=== PATIENT | male | born 1960 | race Two or more races ===

== ENCOUNTER 2018-10-01 20:48 | Emergency (ER) | payer MEDICAID ==
[~2018-10-01] VITALS: Ht 167.6 cm; Wt 79.4 kg
[~2018-10-01 20:48] MED LIST: ASP81EC PO; LISI40TA PO; METF-370 PO; METO25TA5 PO; OME20T PO; SIMV-13 PO
[2018-10-01 23:49] LABS: Basophils # (auto) 0 uL; Basophils % (auto) 0.2 % (0.0-2.0); Eosinophils # (auto) 0 uL; Hematocrit 47.2 % (41.0-53.0); Hemoglobin 15.9 g/dL (13.5-17.5); Lymphocytes # (auto) 0.8 uL; Lymphocytes % (auto) 5.7 % (10.0-50.0); Mean Corpuscular Hemoglobin 28.5 pg (28.0-32.0); Mean Corpuscular Hgb Conc. 33.6 g/dL (32.0-36.0); Mean Corpuscular Volume 84.7 fL (80.0-100.0); Monocytes # (auto) 0.8 uL; Monocytes % (auto) 5.7 % (0.0-12.0); Neutrophils # (auto) 12.9 uL; Neutrophils % (auto) 88.4 % (37.0-80.0); Platelet Count (auto) 184 10^3/uL (140-450); Red Blood Cells 5.57 10^6/uL (4.5-5.90); Red Cell Distribution Width 13.9 % (11.8-14.3); White Blood Cell 14.7 10^3/uL (4.4-10.8)
[2018-10-02 00:02] LABS: Albumin 3.8 g/dL (3.4-5.0); Anion Gap 8 (5-15); Blood Urea Nitrogen 16 mg/dL (7-18); Calcium 8.3 mg/dL (8.5-10.1); Carbon Dioxide 23 mmol/L (21-32); Chloride 106 mmol/L (98-107); Glucose 132 mg/dL (74-106); Potassium 3.7 mmol/L (3.5-5.1); Sodium 137 mmol/L (136-145)
[2018-10-02 00:07] LABS: Alanine Aminotransferase 26 U/L (16-61); Alkaline Phosphatase 79 U/L (45-117); Aspartate Aminotransferase 16 U/L (15-37); BUN/Creatinine Ratio 10.5; Bilirubin, Total 0.8 mg/dL (0.2-1.0); GFR African American 60 mL/min; GFR Non-African American 50 mL/min; Total Protein 7.3 g/dL (6.4-8.2)
[2018-10-02] MEDS ORDERED: SODIUM CHLORIDE 0.9% 1,000 ML IV ONE (08:01)
[2018-10-02] MEDS ORDERED: METOCLOPRAMIDE HCL 5MG/ml INJ 2ml VIAL IV ONE (08:15)
[2018-10-02] MEDS ORDERED: VANCOMYCIN HCL 500MG/5ML ORAL SOL PO ONE (08:15)
[2018-10-02] MEDS ORDERED: metroNIDAZOLE 500MG/100ML 100 ML IV ONE (08:15)
[2018-10-02] MEDS ORDERED: KETOROLAC TROMETH 30 MG/ML 1ML VIAL IV ONE (08:15)
[2018-10-02 14:04] LABS: Urine Bacteria NONE SEEN /hpf (None Seen); Urine Blood Negative /uL (Negative); Urine Hyaline Cast MOD /lpf (0 - 2); Urine Mucus FEW (None Seen); Urine Specific Gravity 1.024 (1.001-1.035); Urine WBC 3 /hpf (0 - 3)
[2018-10-02 16:00] VITALS: BP 108/65
== END 2018-10-02 16:10 | disposition home or self-care (01) ==
LOC: ER 20:48
DX: R07.89 Other chest pain (principal); J40 Bronchitis, not specified as acute or chronic; E11.21 Type 2 diabetes mellitus with diabetic nephropathy; K52.9 Noninfective gastroenteritis and colitis, unspecified; R51 Headache; K21.9 Gastro-esophageal reflux disease without esophagitis; E78.5 Hyperlipidemia, unspecified; F17.210 Nicotine dependence, cigarettes, uncomplicated; I10 Essential (primary) hypertension; Z87.11 Personal history of peptic ulcer disease; Z79.82 Long term (current) use of aspirin; Z79.899 Other long term (current) drug therapy
CPT/HCPCS: 36415; 71045; 80053; 81001; 83735; 84484; 85025; 87804; 93005; 96365; 96375; 99284; J1885; J2765; J3370; J3490; J7030

== ENCOUNTER 2021-11-04 12:06 | Inpatient (IN) | payer MEDICAID, OTHER ==
[~2021-11-04] VITALS: Ht 165.1 cm; Wt 82.2 kg
[~2021-11-04 12:06] MED LIST changes: -ASP81EC PO; +ASPI-394 PO; -LISI40TA PO; +LISI40TA11 PO
[2021-11-04] MEDS ORDERED: KETOROLAC TROMETH 30 MG/ML 1ML VIAL IV ONE (12:45)
[2021-11-04] MEDS ORDERED: CLINDAMYCIN 600MG IV 50 ML IV ONE (12:45)
[2021-11-04] MEDS ORDERED: SODIUM CHLORIDE 0.9% 1,000 ML IV ONE (12:45)
[2021-11-04 14:36] LABS: Basophils # (auto) 0.1 10 ^3/uL (0-0.2); Basophils % (auto) 0.3 % (0.0-2.0); Eosinophils # (auto) 0 10 ^3/uL (0-0.8); Eosinophils % (auto) 0.1 % (0.0-7.0); Hemoglobin 13.8 g/dL (13.5-17.5); Lymphocytes # (auto) 1.6 10 ^3/uL (0.4-5.4); Lymphocytes % (auto) 9.5 % (10.0-50.0); Mean Corpuscular Hgb Conc. 33.6 g/dL (32.0-36.0); Mean Corpuscular Volume 83.4 fL (80.0-100.0); Monocytes # (auto) 1.2 10 ^3/uL (0-1.3); Monocytes % (auto) 7.2 % (0.0-12.0); Neutrophils % (auto) 82.9 % (37.0-80.0); Nucleated Red Blood Cells % 0.1 %; Red Blood Cells 4.92 10^6/uL (4.5-5.90); Red Cell Distribution Width 13.5 % (11.8-14.3); White Blood Cell 16.9 10^3/uL (4.4-10.8)
[2021-11-04 14:58] LABS: Albumin 3.3 g/dL (3.4-5.0); Anion Gap 8 (5-15); BUN/Creatinine Ratio 14.3; Blood Urea Nitrogen 15 mg/dL (7-18); Calcium 8.3 mg/dL (8.5-10.1); Carbon Dioxide 24 mmol/L (21-32); Chloride 107 mmol/L (98-107); GFR African American 92 mL/min; GFR Non-African American 76 mL/min; Glucose 125 mg/dL (74-106); Potassium 3.5 mmol/L (3.5-5.1); Sodium 139 mmol/L (136-145)
[2021-11-04 15:01] LABS: Alanine Aminotransferase 24 U/L (16-61); Alkaline Phosphatase 97 U/L (45-117); Aspartate Aminotransferase 18 U/L (15-37); Bilirubin, Total 0.4 mg/dL (0.2-1.0); Total Protein 6.9 g/dL (6.4-8.2)
[2021-11-04] MEDS ORDERED: MORPHINE SULFATE 4 MG/ML SYR/VIAL IV ONE (19:45)
[2021-11-04] MEDS ORDERED: ONDANSETRON HCL 4 MG/2 ML VIAL IV ONE (19:45)
[2021-11-04] MEDS ORDERED: DEXTROSE (50%) 50ML SYRG IV PRN (21:45)
[2021-11-04] MEDS ORDERED: ACETAMINOPHEN 325 MG TAB PO PRN (21:45)
[2021-11-04] MEDS ORDERED: TEMAZEPAM 15 MG CAP PO PRN (21:45)
[2021-11-04] MEDS ORDERED: ONDANSETRON HCL 4 MG/2 ML VIAL IV PRN (21:45)
[2021-11-04] MEDS: InsuLIN REG 1unit/0.01ml Soln (100units/ml) SC SCH (22:00)
[2021-11-04] MEDS: CLINDAMYCIN 600MG IV 50 ML IV SCH (22:46)
[2021-11-04] MEDS: cefTRIAXone 1GM/50ML D5W 50 ML IV SCH (22:46)
[2021-11-04] MEDS: ATORVASTATIN 20 MG TAB PO SCH (22:47)
[2021-11-04] MEDS: ACCU-CHEK COMFORT CURVE STRIP VI SCH (22:47)
[2021-11-04] MEDS: METOPROLOL TARTRATE 25 MG TAB PO SCH (22:48)
[2021-11-04 23:44] VITALS: BP 145/79
[2021-11-05 02:59] VITALS: BP 145/79
[2021-11-05] MEDS: HYDROcodone-ACET 5/325MG TAB PO PRN ×3 (04:32→20:23)
[2021-11-05 05:00] VITALS: BP 138/71
[2021-11-05] MEDS: ACCU-CHEK COMFORT CURVE STRIP VI SCH ×4 (06:12→21:50)
[2021-11-05] MEDS: InsuLIN REG 1unit/0.01ml Soln (100units/ml) SC SCH ×4 (06:12→21:50)
[2021-11-05] MEDS: CLINDAMYCIN 600MG IV 50 ML IV SCH ×3 (06:12→22:23)
[2021-11-05 06:59] LABS: Basophils # (auto) 0 10 ^3/uL (0-0.2); Basophils % (auto) 0.1 % (0.0-2.0); Eosinophils # (auto) 0.1 10 ^3/uL (0-0.8); Eosinophils % (auto) 0.8 % (0.0-7.0); Hematocrit 38.6 % (41.0-53.0); Hemoglobin 13.2 g/dL (13.5-17.5); Lymphocytes # (auto) 1.6 10 ^3/uL (0.4-5.4); Lymphocytes % (auto) 11.7 % (10.0-50.0); Mean Corpuscular Hemoglobin 28.6 pg (28.0-32.0); Mean Corpuscular Hgb Conc. 34.3 g/dL (32.0-36.0); Mean Corpuscular Volume 83.3 fL (80.0-100.0); Monocytes # (auto) 1.3 10 ^3/uL (0-1.3); Monocytes % (auto) 8.9 % (0.0-12.0); Neutrophils % (auto) 78.5 % (37.0-80.0); Red Blood Cells 4.63 10^6/uL (4.5-5.90)
[2021-11-05 07:00] LABS: Calcium 8.1 mg/dL (8.5-10.1); Potassium 3.9 mmol/L (3.5-5.1)
[2021-11-05 09:00] VITALS: BP 142/85
[2021-11-05] MEDS: cefTRIAXone 1GM/50ML D5W 50 ML IV SCH (09:33)
[2021-11-05] MEDS: PANTOPRAZOLE 40 MG TAB PO SCH (09:33)
[2021-11-05] MEDS: LISINOPRIL 20 MG TAB PO SCH (09:34)
[2021-11-05] MEDS: METOPROLOL TARTRATE 25 MG TAB PO SCH ×2 (09:34→22:23)
[2021-11-05 17:00] VITALS: BP 168/88
[2021-11-05 22:00] VITALS: BP 133/84
[2021-11-05] MEDS: ATORVASTATIN 20 MG TAB PO SCH (22:23)
[2021-11-06 05:00] VITALS: BP 144/80
[2021-11-06] MEDS: InsuLIN REG 1unit/0.01ml Soln (100units/ml) SC SCH ×4 (05:24→22:00)
[2021-11-06] MEDS: ACCU-CHEK COMFORT CURVE STRIP VI SCH ×4 (05:24→22:38)
[2021-11-06] MEDS: CLINDAMYCIN 600MG IV 50 ML IV SCH ×3 (05:37→22:36)
[2021-11-06 08:00] VITALS: BP 133/84
[2021-11-06 09:00] VITALS: BP 129/72
[2021-11-06] MEDS: cefTRIAXone 1GM/50ML D5W 50 ML IV SCH (09:19)
[2021-11-06] MEDS: HYDROcodone-ACET 5/325MG TAB PO PRN ×2 (09:20→22:39)
[2021-11-06] MEDS: PANTOPRAZOLE 40 MG TAB PO SCH (09:20)
[2021-11-06] MEDS ORDERED: LACTULOSE 20Gm/30ML SOLN PO ONE (09:30)
[2021-11-06] MEDS: METOPROLOL TARTRATE 25 MG TAB PO SCH ×2 (09:44→22:37)
[2021-11-06] MEDS: LISINOPRIL 20 MG TAB PO SCH (09:45)
[2021-11-06 13:00] VITALS: BP 141/74
[2021-11-06 17:00] VITALS: BP 115/76
[2021-11-06 22:14] VITALS: BP 158/98
[2021-11-06] MEDS: ATORVASTATIN 20 MG TAB PO SCH (22:36)
[2021-11-07 04:54] VITALS: BP 144/99
[2021-11-07] MEDS: CLINDAMYCIN 600MG IV 50 ML IV SCH ×3 (06:34→21:38)
[2021-11-07] MEDS: ACCU-CHEK COMFORT CURVE STRIP VI SCH ×3 (06:35→17:00)
[2021-11-07] MEDS: InsuLIN REG 1unit/0.01ml Soln (100units/ml) SC SCH ×4 (06:36→22:00)
[2021-11-07 09:00] VITALS: BP 167/101
[2021-11-07] MEDS: cefTRIAXone 1GM/50ML D5W 50 ML IV SCH (10:26)
[2021-11-07] MEDS: PANTOPRAZOLE 40 MG TAB PO SCH (10:27)
[2021-11-07] MEDS: METOPROLOL TARTRATE 25 MG TAB PO SCH ×2 (10:27→21:38)
[2021-11-07] MEDS: LISINOPRIL 20 MG TAB PO SCH (10:28)
[2021-11-07 13:00] VITALS: BP 176/97
[2021-11-07] MEDS: HYDROcodone-ACET 5/325MG TAB PO PRN (14:34)
[2021-11-07 17:00] VITALS: BP 151/100
[2021-11-07] MEDS: ATORVASTATIN 20 MG TAB PO SCH (21:38)
[2021-11-07 22:00] VITALS: BP 186/100
[2021-11-08 05:00] VITALS: BP 141/95
[2021-11-08] MEDS: ACCU-CHEK COMFORT CURVE STRIP VI SCH ×2 (05:39→06:17)
[2021-11-08] MEDS: CLINDAMYCIN 600MG IV 50 ML IV SCH (06:17)
[2021-11-08] MEDS: InsuLIN REG 1unit/0.01ml Soln (100units/ml) SC SCH (06:17)
[2021-11-08 08:20] VITALS: BP 147/97
[2021-11-08] MEDS ORDERED: HYDR-4902 PO (08:59)
[2021-11-08] MEDS ORDERED: CLIN300C8 PO (08:59)
[2021-11-08] MEDS: cefTRIAXone 1GM/50ML D5W 50 ML IV SCH (09:27)
[2021-11-08] MEDS: LISINOPRIL 20 MG TAB PO SCH (09:28)
[2021-11-08] MEDS: METOPROLOL TARTRATE 25 MG TAB PO SCH (09:28)
[2021-11-08] MEDS: HYDROcodone-ACET 5/325MG TAB PO PRN (09:29)
[2021-11-08] MEDS: PANTOPRAZOLE 40 MG TAB PO SCH (09:29)
[2021-11-08 11:31] VITALS: BP 147/97
[2021-11-08 11:41] VITALS: BP 147/97
[2021-11-08 12:15] VITALS: BP 158/91
== END 2021-11-08 13:00 | disposition home or self-care (01) | DRG 501 ==
LOC: ER 12:06 → OVERFLOW 21:43 → CENTRAL 23:30
PROVIDERS: ADMIT Nurse Practitioner; ATTEND Family Medicine
DX: N45.4 Abscess of epididymis or testis (principal); L02.416 Cutaneous abscess of left lower limb; L03.116 Cellulitis of left lower limb; E11.9 Type 2 diabetes mellitus without complications; E78.5 Hyperlipidemia, unspecified; N43.3 Hydrocele, unspecified; F17.210 Nicotine dependence, cigarettes, uncomplicated; E78.00 Pure hypercholesterolemia, unspecified; Z20.822 Contact with and (suspected) exposure to COVID-19; I10 Essential (primary) hypertension; Z87.11 Personal history of peptic ulcer disease; Z82.3 Family history of stroke; Z83.3 Family history of diabetes mellitus
CPT/HCPCS: 36415; 76870; 80048; 80053; 82962; 83036; 83605; 85025; 86850; 86900; 86901; 87040; 87077; 87186; 87205; 93926; 96365; 96375; G0378; J0696; J1885; J2405; J3490

== ENCOUNTER 2022-09-23 22:45 | Emergency (ER) | payer MEDICAID ==
[~2022-09-23] VITALS: Ht 167.6 cm; Wt 86.2 kg
[~2022-09-23 22:45] MED LIST changes: +CLIN300C8 PO; +HYDR-4902 PO
[2022-09-24] MEDS ORDERED: ACET-1158 PO (03:57)
[2022-09-24] MEDS ORDERED: AZITTAB PO (03:57)
[2022-09-24] MEDS ORDERED: CYCL-837 PO (03:57)
[2022-09-24] MEDS ORDERED: ONDANSETRON ODT 4 MG TAB PO ONE (04:00)
[2022-09-24] MEDS ORDERED: MORPHINE SULFATE INJ 2 MG/ml SYRG IM ONE (04:00)
[2022-09-24 04:44] VITALS: BP 113/79
== END 2022-09-24 05:41 | disposition home or self-care (01) ==
LOC: ER 22:45 → EDBD 22:45 → ER 09-24 04:48
DX: S39.012A Strain of muscle, fascia and tendon of lower back, initial encounter (principal); J06.9 Acute upper respiratory infection, unspecified; F17.210 Nicotine dependence, cigarettes, uncomplicated; E11.9 Type 2 diabetes mellitus without complications; K21.9 Gastro-esophageal reflux disease without esophagitis; E78.5 Hyperlipidemia, unspecified; I10 Essential (primary) hypertension; Z88.1 Allergy status to other antibiotic agents; X50.1XXA Overexertion from prolonged static or awkward postures, initial encounter; Y93.89 Activity, other specified; Y92.89 Other specified places as the place of occurrence of the external cause; Y99.8 Other external cause status
CPT/HCPCS: 96372; 99283; J2270; Q0162